=== PATIENT | female | born 1960 | race Caucasian/White ===

== ENCOUNTER 2019-07-01 11:47 | Emergency (ER) | payer MEDICARE, SELFPAY ==
[2019-07-01 11:52] VITALS: BP 195/89; PULSE 83; RESP 21; TEMP 36.6; O2SAT 97; BMI 41.5
--- NOTE | 2019-07-01 11:56 | ED_ITS ---
Entered by Chanel Ruffin, acting as scribe for Caden Nowak MD, [facility] [place]PI - Chest Pain General: Chief Complaint: Chest Pain Stated Complaint: Chest Pain Time Seen by Provider: 07/01/19 11:56 Source: patient and family Mode of arrival: ambulatory Limitations: no limitations History of Present Illness: HPI narrative: 59 yo female presents to ED with complaints of chest pain. The patient feels it is indigestion with chest pain. She has taken a total of 3 Nitro and has had relief. She said at first the pain was in her central chest and now, with deep inspiration, she has pain that goes up into her L shoulder. The patient has a heart history (she has stents in place) and the pain in her L shoulder is the same as her previous heart attack. The pain is not reproducible. She said that when she eats a lot of carbs she will, sometimes, have acid reflux due to a previous surgery. She has recently been on antibiotics for an ear infection. The patient takes a baby aspirin every day. MD complaint: chest pain Pertinent past history: prior PR Onset (ago): hour(s) (in the night) Timing of current episode: episodic Prior episodes: Yes Onset: during rest Pain location: substernal and left chest Pain radiation: none Severity: moderate Quality: aching and sharp Relieving factors: nitroglycerin Exacerbating factors: nothing Context: recent illness Associated symptoms: Reports no associated symptoms; Deny abdominal pain, dyspnea, fever(s), nausea, palpitations or vomiting Treatment prior to arrival: nitroglycerin Review of Systems General: Reports: 10 or more systems reviewed and unremarkable except in HPI and below Const: Denies: fever, chills or body aches Eyes: Reports: blind spots; Denies: change in vision or blurry vision ENMT: Denies: throat pain, enlarged tonsils, painful swallowing, hoarseness, mouth pain or swelling of lips/tongue Card: Denies: palpitations, irregular heart rhythm, edema or swelling of feet/ankles Resp: Denies: shortness of breath, productive cough or non-productive cough GI: Denies: abdominal pain, nausea or vomiting : Denies: flank pain, difficulty urinating, painful urination, urinary frequency, urinary urgency or urinary hesitancy Musc: Reports: extremity pain (left shoulder), joint pain (left shoulder) and limited range of motion; Denies: neck pain, back pain or extremity swelling Skin/Breast: Denies: rash, itching or redness Neuro: Denies: headache, numbness in extremities or weakness in extremities Endo: Denies: excessive urination, excessive thirst or tired all the time PFSH ED PFSH: Statuses (acute, chronic, etc) shown below reflect problem list status as previously entered and may not be historically accurate Social History Smoking and tobacco status: former smoker Physical Exam Const: COMMON NORMALS: no apparent distress, average body habitus, oriented x3, no limitations, healthy appearing, alert and well nourished HENMT: COMMON NORMALS: normocephalic, head/scalp atraumatic and moist oral mucous membranes HEAD & SCALP: normocephalic and atraumatic Eye: COMMON NORMALS: PERRL, EOMs intact bilaterally, conjunctivae normal and no scleral icterus CONJUNCTIVA: Yes conjunctivae normal PUPIL: Yes PERRL Neck/C-Spine: COMMON NORMALS: full ROM, supple, no meningeal signs, no JVD and no carotid bruits Chest: COMMONS NORMALS: inspection of chest normal and palpation of chest normal Resp: COMMON NORMALS: normal respiratory effort, no retractions, no use of accessory muscles, clear to auscultation bilaterally and percussion normal AUSCULTATION: clear to auscultation bilaterally PERCUSSION: percussion normal Cardio: COMMON NORMALS: no JVD, regular rate, regular rhythm, S1 normal heart sound, S2 normal heart sound, no gallops, no clicks, no murmurs, no rub and peripheral pulses 2+ throughout RATE: regular rate RHYTHM: regular rhythm HEART SOUNDS: S1 normal and S2 normal PERIPHERAL PULSES: pulses 2+ throughout GI: COMMON NORMALS: normal to inspection, nondistended, normoactive bowel sounds, soft to palpation, non-tender, no hepatosplenomegaly, no masses and no bruits PALPATION: Yes soft and Yes no hepatosplenomegaly : COMMON NORMALS: Yes no CVA tenderness BLADDER/KIDNEY EXAM: Yes no CVA tenderness Back/Pelvis: COMMON NORMALS: no CVA tenderness Extremity: COMMON NORMALS: normal to inspection, full ROM, normal capillary refill, no calf tenderness and no pedal edema Neuro: COMMON NORMALS: oriented x3 SENSORIUM/ORIENTATION: Yes alert MENINGEAL SIGNS: Yes no meningeal signs Skin: COMMON NORMALS: no rashes or lesions noted, no wounds, skin turgor normal, no jaundice, no petechiae and no mottling GENERAL SKIN EXAM: no rashes or lesions noted and turgor normal Course Vital Signs: Vital signs: Vital Signs Temperature 97.8 F 07/01/19 11:52 Pulse Rate 74 07/01/19 15:16 Respiratory Rate 20 H 07/01/19 15:16 Blood Pressure 156/79 07/01/19 15:16 Pulse Oximetry 97 07/01/19 15:16 MDM - Chest Pain MDM Narrative: Medical decision making narrative: 59 year old female who presents to the ED with complaints of chest and epigastric pain. She frequently has epigastric pain following duodenal surgery many years ago. She was unable to determine if this was from that however because her pain improved following nitro she was asked to come to the emergency department for evaluation. In the ED exam was unremarkable and her lab work was as well within the usual range. She had a negative troponin x2. She is therefore discharged home to follow-up with her primary care provider. Medical Records: Attestation: I reviewed the patient's medical records. Lab Data: Attestation: I reviewed the patient's lab results. Labs: Lab Results 07/01/19 07/01/19 07/01/19 Range/Units 12:04 12:04 12:04 WBC 8.9 (4.0-10.0) 10^3/ uL RBC 4.13 (4.1-5.3) 10^6/u L Hgb 12.3 (11.5-15.3) g/dL Hct 37.3 (37.0-47.0) % MCV 90.3 (81-99) fL MCH 29.8 (28.0-34.0) pg MCHC 33.0 (30.0-36.0) g/dL RDW 13.3 (12.1-15.1) % Plt Count 303 (130-400) 10^3/c mm MPV 9.4 (7.4-10.4) fL Neut % (Auto) 64.8 % Lymph % (Auto) 23.7 % [place] % (Auto) 5.8 % Eos % (Auto) 4.5 % Baso % (Auto) 0.8 % Neut # (Auto) 5.8 (1.8-7.7) 10^3/u L Lymph # (Auto) 2.1 (0.8-4.8) 10^3/u L [place] # (Auto) 0.5 (0.2-0.9) 10^3/u L Eos # (Auto) 0.4 (0.0-0.8) 10^3/u L Baso # (Auto) 0.1 (0.0-0.1) 10^3/u L Nucleated RBC % (a uto) 0 % Nucleated RBCs # 0.0 /100WBC Sodium 141 (136-145) mmol/L Potassium 3.5 (3.5-5.1) mmol/L Chloride 104 (98-107) mmol/L Carbon Dioxide 26 (22-29) mmol/L Anion Gap 14.5 (5-19) BUN 13 (8-23) mg/dL Creatinine 0.6 (0.5-0.9) mg/dL GFR Calculation 102.0 (90-130) mL/min Glucose 216 H (74-106) mg/dL Calcium 9.3 (8.5-10.5) mg/dL Total Bilirubin 0.2 (0.15-1.2) mg/dL AST 14 (0-32) U/L ALT 14 (0-33) U/L Alkaline Phosphata se 125 H (35-105) IU/L Troponin T Baselin e 10 (0-10) ng/mL Troponin T 120 [place] (0-10) ng/mL Delta Troponin T (0-10) ABS# Total Protein 7.1 (6.6-8.7) g/dL Albumin 3.9 (3.5-5.2) g/dL Globulin 3.2 (1.3-4.6) g/dL 07/01/19 Range/Units 14:20 WBC (4.0-10.0) 10^3/ uL RBC (4.1-5.3) 10^6/u L Hgb (11.5-15.3) g/dL Hct (37.0-47.0) % MCV (81-99) fL MCH (28.0-34.0) pg MCHC (30.0-36.0) g/dL RDW (12.1-15.1) % Plt Count (130-400) 10^3/c mm MPV (7.4-10.4) fL Neut % (Auto) % Lymph % (Auto) % [place] % (Auto) % Eos % (Auto) % Baso % (Auto) % Neut # (Auto) (1.8-7.7) 10^3/u L Lymph # (Auto) (0.8-4.8) 10^3/u L [place] # (Auto) (0.2-0.9) 10^3/u L Eos # (Auto) (0.0-0.8) 10^3/u L Baso # (Auto) (0.0-0.1) 10^3/u L Nucleated RBC % (a uto) % Nucleated RBCs # /100WBC Sodium (136-145) mmol/L Potassium (3.5-5.1) mmol/L Chloride (98-107) mmol/L Carbon Dioxide (22-29) mmol/L Anion Gap (5-19) BUN (8-23) mg/dL Creatinine (0.5-0.9) mg/dL GFR Calculation (90-130) mL/min Glucose (74-106) mg/dL Calcium (8.5-10.5) mg/dL Total Bilirubin (0.15-1.2) mg/dL AST (0-32) U/L ALT (0-33) U/L Alkaline Phosphata se (35-105) IU/L Troponin T Baselin e (0-10) ng/mL Troponin T 120 [place] 9.62 (0-10) ng/mL Delta Troponin T -0.38 L (0-10) ABS# Total Protein (6.6-8.7) g/dL Albumin (3.5-5.2) g/dL Globulin (1.3-4.6) g/dL Imaging Data^: CXR: Radiologist's impression: [address] [address] XRay Report Signed Patient: Priscilla Davis #: [id number] : 9Acct#:[id number] Age/Sex: 59 / FADM Date: 07/01/19 Loc: ERRoom/Bed: Attending Dr: Ordering Provider/Ordering MD: Caden Nowak MD, [facility] [place] Date of Service: 07/01/19 Procedure(s): XR chest 1V portable [id number] Accession Number(s): [id number] Report Number: [id number] PROCEDURE INFORMATION: Exam: XR Chest, 1 View Exam date and time: 07/01/2019 12:13 PM Age: 59 years old Clinical indication: Chest pain; Type not specified TECHNIQUE: Imaging protocol: XR of the chest Views: 1 view. COMPARISON: No relevant prior studies available. FINDINGS: Lungs: No focal consolidation. Pleural space: There is no significant pleural effusion. There is no discernible pneumothorax. Heart/Mediastinum: No cardiomegaly. Bones/joints: Unremarkable for technique. XR/XR chest 1V portable [id number] IMPRESSION: 1. No acute findings. Dictated By:Steven Hall MD Signed By:Steven Hall MDSigned Date/Time:07/01/19 1322 DD/ EKG Data^: EKG 1: Attestation: I personally reviewed and interpreted this EKG as follows: EKG interpretation date: 07/01/19 EKG interpretation time: 12:02 Prior EKG tracings: not available for review Interpretation: Normal sinus rhythm. Heart rate 81 bpm. Normal MA interval. No ST changes. Low voltage QRS complexes. EKG 2: Attestation: I personally reviewed and interpreted this EKG as follows: EKG interpretation date: 07/01/19 EKG interpretation time: 14:27 Prior EKG tracings: available for review Interpretation: unchanged from earlier today. Discharge Plan Discharge Patient Disposition: Home, Self-Care Clinical Impression: Dyspepsia Chest pain Qualifiers: Chest pain type: other chest pain Qualified Code(s): R07.89 - Other chest pain Condition: Stable Prescriptions: Continued venlafaxine 75 mg Capsule,Extended Release 24hr 75 mg PO DAILY RF: 0 carvedilol 12.5 mg Tablet 12.5 mg PO BID RF: 0 ibuprofen 800 mg Tablet 800 mg PO TID PRN (Reason: Pain) RF: 0 pioglitazone 45 mg Tablet 45 mg PO DAILY RF: 0 Aspir-Low 81 mg Tablet,Delayed Release (Dr/Ec) 81 mg PO DAILY RF: 0 isosorbide mononitrate 60 mg Tablet Extended Release 24 Hr 60 mg PO BID RF: 0 iron 325 mg (65 mg iron) Tablet 325 mg PO DAILY RF: 0 cefdinir 300 mg Capsule 300 mg PO BID RF: 0 Levemir FlexTouch U-100 Insuln 100 unit/mL (3 mL) Insulin Pen See Rx Instructions .ROUTE .COMPLEX RF: 0 Bydureon BCise 2 mg/0.85 mL auto-injector See Rx Instructions .ROUTE .COMPLEX RF: 0 Discharge Orders: Discharge Order (Routine); Ordered 07/01/19 Ordered By: Caden Nowak Referrals: Kareem Frye [Referring] - 1-3 days Patient Instructions: Chest Pain (ED), Chronic Indigestion (ED) Activity Restrictions/Additional Instructions: Return for any new or worsening symptoms. Follow-up with your primary care provider within 1 week. Discharge Date/Time: 07/01/19 15:07 Coding Level of Care Code ED Cytotechnologist for Chg Fwd Exam Problem Focused The documentation recorded by the Augustin contreras Valerie R, accurately reflects the service I personally performed and the decisions made by Eliu otto Adegoke I, MD, [facility] [place]
[2019-07-01 12:06] VITALS: BP 156/66; PULSE 84; RESP 16; O2SAT 96
--- NOTE | 2019-07-01 12:09 | XRR_ITS ---
PROCEDURE INFORMATION: Exam: XR Chest, 1 View Exam date and time: 07/01/2019 12:13 PM Age: 59 years old Clinical indication: Chest pain; Type not specified TECHNIQUE: Imaging protocol: XR of the chest Views: 1 view. COMPARISON: No relevant prior studies available. FINDINGS: Lungs: No focal consolidation. Pleural space: There is no significant pleural effusion. There is no discernible pneumothorax. Heart/Mediastinum: No cardiomegaly. Bones/joints: Unremarkable for technique. XR/XR chest 1V portable [id number] IMPRESSION: 1. No acute findings.
--- NOTE | 2019-07-01 12:09 | ECG_ITS ---
Measurements Intervals [place] Rate: 81 P: 35 GA: 164 QRS: -12 QRSD: 90 T: 15 QT: 375 QTc: 437 SINUS RHYTHM LOW QRS VOLTAGE IN PRECORDIAL LEADS [QRS DEFLECTION < 1.0 mV IN CHEST LEADS] MINIMAL ST DEPRESSION [0.025+ mV ST DEPRESSION] No previous ECG available for comparison Electronically Signed On 07-01-2019 20:26:20 PRIVATE CLIENT ADVISOR by Fermín Aragon M.D. [email or web address]
[2019-07-01 12:33] VITALS: BP 183/82; PULSE 77; RESP 18; O2SAT 96
[2019-07-01 12:45] LABS: Basophils # 0.1 10^3/uL (0.0-0.1); Basophils % 0.8 %; Eosinophils # 0.4 10^3/uL (0.0-0.8); Eosinophils % 4.5 %; Hematocrit 37.3 % (37.0-47.0); Hemoglobin 12.3 g/dL (11.5-15.3); Lymphocytes # 2.1 10^3/uL (0.8-4.8); Lymphocytes % 23.7 %; Mean Corpuscular Hemoglobin 29.8 pg (28.0-34.0); Mean Corpuscular Volume 90.3 fL (81-99); Mean Platelet Volume 9.4 fL (7.4-10.4); Monocytes # 0.5 10^3/uL (0.2-0.9); Monocytes % 5.8 %; Neutrophils # 5.8 10^3/uL (1.8-7.7); Neutrophils % 64.8 %; Nucleated Red Blood Cells % 0 %; Platelet Count 303 10^3/cmm (130-400); Red Blood Count 4.13 10^6/uL (4.1-5.3); Red Cell Distribution Width 13.3 % (12.1-15.1); White Blood Count 8.9 10^3/uL (4.0-10.0)
[2019-07-01] MEDS: aspirin 81 mg Chew Tablet 243 MG PO (12:45)
[2019-07-01 12:54] LABS: Alanine Aminotransferase 14 U/L (0-33); Albumin Level 3.9 g/dL (3.5-5.2); Alkaline Phosphatase 125 IU/L (35-105); Anion Gap 14.5 (5-19); Aspartate Amino Transferase 14 U/L (0-32); Blood Urea Nitrogen 13 mg/dL (8-23); Calcium 9.3 mg/dL (8.5-10.5); Carbon Dioxide 26 mmol/L (22-29); Chloride 104 mmol/L (98-107); Globulin 3.2 g/dL (1.3-4.6); Glucose 216 mg/dL (74-106); Potassium 3.5 mmol/L (3.5-5.1); Sodium 141 mmol/L (136-145); Total Bilirubin 0.2 mg/dL (0.15-1.2); Total Protein 7.1 g/dL (6.6-8.7)
[2019-07-01 12:56] LABS: Troponin(5th) Baseline 10 ng/mL (0-10)
[2019-07-01 13:44] VITALS: BP 184/76; PULSE 72; RESP 17; O2SAT 98
--- NOTE | 2019-07-01 14:09 | ECG_ITS ---
Measurements Intervals [place] Rate: 70 P: 27 IN: 162 QRS: -5 QRSD: 97 T: 14 QT: 399 QTc: 431 SINUS RHYTHM INTERPRETATION BASED ON A DEFAULT AGE OF 40 YEARS No previous ECG available for comparison Electronically Signed On 07-02-2019 21:04:24 TANK TRUCK DRIVER by Fermín Aragon M.D. [id number]
--- NOTE | 2019-07-01 14:33 | PC.NURSE ---
EKG performed and shown to ED physician.
[2019-07-01 14:43] LABS: Troponin 5 2HR 9.62 ng/mL (0-10)
[2019-07-01 14:52] LABS: Troponin 5 2HR Delta -0.38 ABS# (0-10)
[2019-07-01 15:16] VITALS: BP 156/79; PULSE 74; RESP 20; O2SAT 97
== END 2019-07-01 15:07 | disposition home or self-care (01) ==
PROVIDERS: Emergency Provider Family Medicine
DX: R07.89 Other chest pain (principal); R10.13 Epigastric pain; Z79.82 Long term (current) use of aspirin; Z79.4 Long term (current) use of insulin; Z87.891 Personal history of nicotine dependence
CPT/HCPCS: 36415; 71045; 80053; 84484; 85025; 93005; 99283; 99284

== ENCOUNTER → 2021-03-12 13:58 | Outpatient (BNVA) | payer MEDICARE, SELFPAY | PROVIDERS: PCP Physician Assistant Medical; Referring Provider Physician Assistant; Visit Provider Internal Medicine | DX: E11.9 Type 2 diabetes mellitus without complications (principal); I51.7 Cardiomegaly; J90 Pleural effusion, not elsewhere classified; Z87.891 Personal history of nicotine dependence; Z79.4 Long term (current) use of insulin | CPT/HCPCS: 99204 ==

== ENCOUNTER 2021-12-28 14:19 | Emergency (ER) | payer MEDICARE, SELFPAY ==
[2021-12-28] VITALS (9 sets, daily range): BP systolic 85–122; BP diastolic 41–68; PULSE 90–106; RESP 0–30; TEMP 36.4; O2SAT 84–96; BMI 44.9
--- NOTE | 2021-12-28 14:24 | CTR_ITS ---
PROCEDURE INFORMATION: Exam: CT Abdomen And Pelvis Without Contrast Exam date and time: 12/28/2021 5:32 PM Age: 61 years old Clinical indication: Abdominal pain; Prior surgery; Surgery date: 6+ months; Surgery type: Drainage in place S/P gastro surgery TECHNIQUE: Imaging protocol: Computed tomography of the abdomen and pelvis without contrast. Radiation optimization: All CT scans at this facility use at least one of these dose optimization techniques: automated exposure control; mA and/or kV adjustment per patient size (includes targeted exams where dose is matched to clinical indication); or iterative reconstruction. COMPARISON: CT chest wo/w con [id number] 09/02/2020 1:47 PM RADIATION DOSE METRICS: Total DLP (mGy-cm): 978.9 FINDINGS: Tubes, catheters and devices: Left upper abdominal percutaneous drainage catheter seen in a poorly defined collection of fluid and air measuring at least 4.9 cm AP by 5.2 cm transverse in the subdiaphragmatic region, separation from the stomach of this collection is limited given lack of enteric contrast. Additionally an apparent gastric band is seen in the left upper quadrant, similar to prior exam. Lungs: Atelectasis versus infiltrate. Pleural spaces: Moderate bilateral left greater than right pleural effusions. Heart: Coronary artery atherosclerotic calcifications. Liver: Hepatic steatosis. Gallbladder and bile ducts: Cholecystectomy. Pancreas: Normal. No ductal dilation. Spleen: Normal. No splenomegaly. Adrenal glands: Normal. No mass. Kidneys and ureters: Left kidney cyst, negative for follow-up advised. Stomach and bowel: See Tubes, catheters and devices finding. Appendix: No evidence of appendicitis. Intraperitoneal space: Unremarkable. No free air. No significant fluid collection. Vasculature: Inferior vena cava filter. Lymph nodes: Unremarkable. No enlarged lymph nodes. Urinary bladder: Rojo catheter in the urinary bladder with air presumed iatrogenic. Reproductive: Unremarkable as visualized. Bones/joints: Unremarkable. No acute fracture. Soft tissues: Diffuse subcutaneous edema about the abdomen pelvis. Probable multifocal injection granulomas seen over the abdomen given multiple rounded soft tissue densities measuring up to at least [address]/CT abdomen pelvis wo con [id number] IMPRESSION: 1. Left upper abdominal percutaneous drainage catheter seen in a poorly defined collection of fluid and air measuring at least 4.9 cm AP by 5.2 cm transverse in the subdiaphragmatic region, separation from the stomach of this collection is limited given lack of enteric contrast. Additionally an apparent gastric band is seen in the left upper quadrant, similar to prior exam. 2. Inferior vena cava filter. 3. Diffuse subcutaneous edema about the abdomen pelvis. 4. Probable multifocal injection granulomas seen over the abdomen given multiple rounded soft tissue densities measuring up to at least 13 mm. 5. Rojo catheter in the urinary bladder with air presumed iatrogenic. 6. Left kidney cyst, negative for follow-up advised. 7. Moderate bilateral left greater than right pleural effusions. 8. Coronary artery atherosclerotic calcifications. 9. Atelectasis versus infiltrate. 10. Hepatic steatosis. 11. Cholecystectomy. COMMENTS: For patients with an IVC filter, recommend assessment for a management plan for the patient's IVC filter. If there is no established management plan, recommend referral to an interventional clinician on a nonemergent basis for evaluation.
--- NOTE | 2021-12-28 14:24 | CTR_ITS ---
PROCEDURE INFORMATION: Exam: CT Head Without Contrast Exam date and time: 12/28/2021 5:29 PM Age: 61 years old Clinical indication: Altered mental status/memory loss; Additional info: AMS, HX of 2 cva's. TECHNIQUE: Imaging protocol: Computed tomography of the head without contrast. Radiation optimization: All CT scans at this facility use at least one of these dose optimization techniques: automated exposure control; mA and/or kV adjustment per patient size (includes targeted exams where dose is matched to clinical indication); or iterative reconstruction. COMPARISON: No relevant prior studies available. RADIATION DOSE METRICS: Total DLP (mGy-cm): 1127.78 FINDINGS: Brain: There are chronic cortical infarcts in the left occipital lobe, and in the left frontal and parietal lobes. There is moderate cortical atrophy. Low-density changes in the white matter are consistent with nonspecific small vessel chronic ischemic change. There is no intracranial mass, hemorrhage or edema. Cerebral ventricles: No ventriculomegaly. Paranasal sinuses: Visualized sinuses are unremarkable. No fluid levels. Mastoid air cells: Visualized mastoid air cells are well aerated. Bones/joints: Unremarkable. No acute fracture. Soft tissues: Unremarkable. CT/CT head wo con* [id number] IMPRESSION: 1. 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 2. No acute intracranial abnormality.
--- NOTE | 2021-12-28 14:24 | ECG_ITS ---
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 Measurements Intervals [place] Rate: 102 P: 52 MA: 154 QRS: -4 QRSD: 99 T: 79 QT: 340 QTc: 444 Interpretive Statements SINUS TACHYCARDIA LOW QRS VOLTAGE IN EXTREMITY LEADS [QRS DEFLECTION < 0.5 mV IN LIMB LEADS] POSSIBLE ANTERIOR MYOCARDIAL INFARCTION , OF INDETERMINATE AGE [30 ms Q WAVE IN V3/V4, OR R < 0.2 mV IN V4] Compared to ECG 07/01/2019 14:26:47 Low QRS voltage now present Myocardial infarct finding now present Sinus rhythm no longer present Electronically Signed On 12-29-2021 7:08:59 CDT by Leonel Ramos M.D. [id number]
[2021-12-28] MEDS: ondansetron 2 mg/ML SDV 2 mL 4 MG IVP (14:39)
[2021-12-28] MEDS: midazolam 1 mg/mL INJ 2 mL IVP ×3 (14:40→16:35)
--- NOTE | 2021-12-28 14:50 | ED_ITS ---
Documented by User: Gabe Moore DO 01/04/22 22:35 HPI - General Adult General: Chief complaint: Altered Mental Status Stated complaint: AMS Time Seen by Provider: 12/28/21 14:23 Source: EMS Mode of arrival: EMS Limitations: altered mental status History of Present Illness: 61-year-old female presents emergency room via EMS from [facility]. Patient has significant altered mental status is unable to provide any history is brought in from home she has a PEG tube in place she has what looks like an remnants of a diaper under the left breast and has was found to have melanic bleeding from the rectum. When patient first arrived the only history we are getting is via EMS report. There is no family in the department. Patient was calling out and thrashing about the bed to the point where she had to be given sedatives to allow care to be given. Onset (ago): unknown Location: abdomen Severity: moderate Relieving factors: none Exacerbating factors: none Associated symptoms: Reports confusion, decreased appetite, malaise, rash and weakness; Deny chest pain, cough, diaphoresis, dyspnea, fevers/chills, headache(s), nausea, palpitations, seizures, short of breath, syncope or vomiting Treatments prior to arrival: none Review of Systems General: Reports: ROS unobtainable due to mental status (Limited due to mental status) Const: Reports: malaise; Denies: diaphoresis Card: Denies: chest pain, palpitations or syncope Resp: Denies: dyspnea GI: Denies: nausea or vomiting Skin/Breast: Reports: rash Neuro: Reports: confusion; Denies: headache(s) PFS ED PFSH: Medical History Anxiety CAD (coronary artery disease) Iron deficiency Type 2 diabetes mellitus Surgical History H/O dilation and curettage H/O hernia repair H/O laparoscopic adjustable gastric banding History of cholecystectomy Hx of tonsillectomy S/P biliopancreatic diversion with duodenal switch S/P panniculectomy Stented coronary artery Family History Mother Cancer Stroke Father Cancer CAD (coronary artery disease) Brother Cancer Sister Cancer Social History Smoking and tobacco status: former smoker Quit status (tobacco): has quit using tobacco Year quit tobacco: 1991 Former quit date comment: Hx of 3PPD x 20 Years Smoking risk assessment/counseling performed?: No Alcohol intake: never Counseling given: No Counseling given: No Lives independently: Yes Household members: spouse Marital status: Current occupational status: disabled 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 Pets and animals: Yes Pets & animals: cat(s) and bird(s) Pets & animal details: Previous bird exposure Current gender identity: Female Physical Exam Const: GENERAL APPEARANCE: disheveled and ill appearing NUTRITIONAL APPEARANCE: obese ORIENTATION/CONSCIOUSNESS: Yes awake and Yes confused HENMT: COMMON NORMALS: normocephalic, atraumatic and hearing grossly normal bilaterally HEAD & SCALP: normocephalic and atraumatic Resp: COMMON NORMALS: normal respiratory effort, No retractions, No use of accessory muscles and clear to auscultation bilaterally AUSCULTATION: clear to auscultation bilaterally Cardio: COMMON NORMALS: regular rate, regular rhythm and No murmurs present (Cardio) RATE: regular rate RHYTHM: regular rhythm GI: COMMON NORMALS: Soft to palpation and No hepatosplenomegaly present AUSCULTATION: Yes normoactive bowel sounds PALPATION: Yes Soft to palpation, No Tenderness to palpation present (GI), No Guarding due to palpation present (GI) and Yes No hepatosplenomegaly present OTHER: Significant scar tissue on the abdomen. Examination of the presacral area in the rectum there is dark red blood about the rectum. Patient has a depends undergarment on which is also soaked with blood. Extremity: COMMON NORMALS: normal to inspection, capillary refill normal, no clubbing, cyanosis or edema, no calf tenderness and no pedal edema Neuro: SENSORIUM/ORIENTATION: Yes stuporous Course Vital Signs: Vital signs: Vital Signs Temperature 97.5 F L 12/28/21 21:19 Pulse Rate 97 12/28/21 21:19 Respiratory Rate 15 12/28/21 21:19 Blood Pressure 101/56 12/28/21 21:19 Pulse Oximetry 96 12/28/21 21:19 MDM - General Adult Medical Decision Making Initially patient seen evaluated made arrangements to admit. Family became a vailable later and wished to transfer patient where she previous had bariatric surgery see Dr. Beasley's notes Patient presents here with altered mental status found to be septic with elevated white count and lactate her blood pressure is much improved after IV fluids patient was given IV antibiotics as well she had extensive history had a gastric sleeve CT did show a large fluid collection around her percutaneous drain we do not have bariatric surgery here I did speak to her bariatric surgeon in [place] and will transfer there for higher level of care. Medical Records I reviewed the patient's medical records. Lab Data I reviewed the patient's lab results. : 12/28/21 16:07 12/28/21 16:07 Radiology Impressions Abdomen/Pelvis CT 12/28/21 14:24 IMPRESSION: 1. Left upper abdominal percutaneous drainage catheter seen in a poorly defined collection of fluid and air measuring at least 4.9 cm AP by 5.2 cm transverse in the subdiaphragmatic region, separation from the stomach of this collection is limited given lack of enteric contrast. Additionally an apparent gastric band is seen in the left upper quadrant, similar to prior exam. 2. Inferior vena cava filter. 3. Diffuse subcutaneous edema about the abdomen pelvis. 4. Probable multifocal injection granulomas seen over the abdomen given multiple rounded soft tissue densities measuring up to at least 13 mm. 5. Rojo catheter in the urinary bladder with air presumed iatrogenic. 6. Left kidney cyst, negative for follow-up advised. 7. Moderate bilateral left greater than right pleural effusions. 8. Coronary artery atherosclerotic calcifications. 9. Atelectasis versus infiltrate. 10. Hepatic steatosis. 11. Cholecystectomy. COMMENTS: For patients with an IVC filter, recommend assessment for a management plan for the patient's IVC filter. If there is no established management plan, recommend referral to an interventional clinician on a nonemergent basis for evaluation. Head CT 12/28/21 14:24 IMPRESSION: 1. 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 2. No acute intracranial abnormality. Chest X-Ray 12/28/21 17:26 IMPRESSION: 1. Mild cardiomegaly. 2. Small left effusion suspected. 3. Bibasilar left greater than right atelectasis versus infiltrate. 4. Left upper abdominal drainage catheter\ seen. Laboratory Results WBC 18.5 10^3/uL (4.0-10.0) H 12/28/21 16:07 RBC 2.61 10^6/uL (4.1-5.3) L 12/28/21 16:07 Hgb 9.0 g/dL (11.5-15.3) L 12/28/21 16:07 Hct 28.4 % (37.0-47.0) L 12/28/21 16:07 MCV 108.8 fl (81-99) H 12/28/21 16:07 MCH 34.5 pg (28.0-34.0) H 12/28/21 16:07 MCHC 31.7 g/dL (30.0-36.0) 12/28/21 16:07 RDW 16.4 % (12.1-15.1) H 12/28/21 16:07 Plt Count 483 10^3/cmm (130-400) H 12/28/21 16:07 MPV 8.5 fL (7.4-10.4) 12/28/21 16:07 Neut % (Auto) 87.0 % 12/28/21 16:07 Lymph % (Auto) 5.3 % 12/28/21 16:07 Johnston % (Auto) 6.0 % 12/28/21 16:07 Eos % (Auto) 0.0 % 12/28/21 16:07 Baso % (Auto) 0.3 % 12/28/21 16:07 Neut # (Auto) 16.08 10^3/uL (1.8-7.7) H 12/28/21 16:07 Lymph # (Auto) 1.0 10^3/uL (0.8-4.8) 12/28/21 16:07 Johnston # (Auto) 1.1 10^3/uL (0.2-0.9) H 12/28/21 16:07 Eos # (Auto) 0.0 10^3/uL (0.0-0.8) 12/28/21 16:07 Baso # (Auto) 0.1 10^3/uL (0.0-0.1) 12/28/21 16:07 Nucleated RBC % (auto) 0.1 % 12/28/21 16:07 Nucleated RBCs # 0.0 /100WBC 12/28/21 16:07 Sodium 132 mmol/L (136-145) L 12/28/21 16:07 Potassium 4.5 mmol/L (3.5-5.1) 12/28/21 16:07 Chloride 97 mmol/L (98-107) L 12/28/21 16:07 Carbon Dioxide 21 mmol/L (22-29) L 12/28/21 16:07 Anion Gap 18.5 (5-19) 12/28/21 16:07 BUN 24 mg/dL (8-23) H 12/28/21 16:07 Creatinine 0.9 mg/dL (0.5-0.9) 12/28/21 16:07 GFR Calculation 63.4 mL/min (90-130) L 12/28/21 16:07 Glucose 109 mg/dL (65-115) 12/28/21 16:07 Calculated Osmolality 279 mOsm/kg (285-295) L 12/28/21 16:07 Lactic Acid 5.4 mmol/L (0.5-2.2) H* 12/28/21 16:07 Lactate 2.6 mmol/L (0.5-2.2) H 12/28/21 19:50 Calcium 7.6 mg/dL (8.5-10.5) L 12/28/21 16:07 Magnesium 1.8 mg/dL (1.7-2.3) 12/28/21 16:07 Total Bilirubin 1.3 mg/dL (0.15-1.2) H 12/28/21 16:07 AST 25 U/L (0-32) 12/28/21 16:07 ALT 26 U/L (0-33) 12/28/21 16:07 Alkaline Phosphatase 234 IU/L (35-105) H 12/28/21 16:07 Troponin T Baseline 20 ng/L (0-10) H 12/28/21 16:07 Troponin T 120 Minute 15.26 ng/L (0-10) H 12/28/21 20:12 Delta Troponin T -4.74 ABS# (0-10) L 12/28/21 20:12 Total Protein 4.9 g/dL (6.6-8.7) L 12/28/21 16:07 Albumin 1.6 g/dL (3.5-5.2) L 12/28/21 16:07 Globulin 3.3 g/dL (1.3-4.6) 12/28/21 16:07 Lipase 4 U/L (13-60) L 12/28/21 16:07 Urine Color Nayeli (Yellow) 12/28/21 14:50 Urine Appearance Hazy (CLEAR) A 12/28/21 14:50 Urine pH 5 (5-7) 12/28/21 14:50 Ur Specific Olyphant 1.015 (1.005-1.030) 12/28/21 14:50 Urine Protein Neg (Negative) 12/28/21 14:50 Urine Glucose (UA) Norm (Normal) 12/28/21 14:50 Urine Ketones Negative (Negative) 12/28/21 14:50 Urine Blood 3+ (Negative) H 12/28/21 14:50 Urine Nitrate Negative (Negative) 12/28/21 14:50 Urine Bilirubin 2+ (Negative) H 12/28/21 14:50 Urine Urobilinogen 4 mg/dL (Negative) H 12/28/21 14:50 Ur Leukocyte Esterase Negative (Negative) 12/28/21 14:50 Urine RBC 5-10 /hpf (0-2) H 12/28/21 14:50 Urine WBC 0-4 /hpf (0-5) H 12/28/21 14:50 Ur Squamous Epith Cells 10-15 /hpf (0-5) H 12/28/21 14:50 Amorphous Sediment Not Reportable 12/28/21 14:50 Urine Bacteria 1+ /hpf (NONE) H 12/28/21 14:50 Hyaline Casts 15-25 /lpf H 12/28/21 14:50 Urine Mucus 1+ /hpf 12/28/21 14:50 Serum Ketones Negative (Negative) 12/28/21 16:07 SARS-CoV-2 Ag (Rapid) Negative (Negative) 12/28/21 19:59 Blood Type O Positive 12/28/21 17:00 Rho(D) Type Positive 12/28/21 17:00 Antibody Screen Negative 12/28/21 17:00 Discharge Plan Discharge Patient Disposition: Xfer Short-Term Hosp Clinical Impression: Sepsis, Altered mental status Condition: Stable Referrals: Kareem Frye [Referring] - John Bolden MD [Primary Care Provider] - Coding Level of Care Code ED Safety Professional for Chg Fwd Exam Detailed Documented by User: Eliel Beasley MD 12/28/21 20:29 HPI - General Adult General: Chief complaint: Altered Mental Status Stated complaint: AMS Time Seen by Provider: 12/28/21 14:23 PFSH ED PFSH: Medical History Anxiety CAD (coronary artery disease) Iron deficiency Type 2 diabetes mellitus Surgical History H/O dilation and curettage H/O hernia repair H/O laparoscopic adjustable gastric banding History of cholecystectomy Hx of tonsillectomy S/P biliopancreatic diversion with duodenal switch S/P panniculectomy Stented coronary artery Family History Mother Cancer Stroke Father Cancer CAD (coronary artery disease) Brother Cancer Sister Cancer Social History Smoking and tobacco status: former smoker Quit status (tobacco): has quit using tobacco Year quit tobacco: 1991 Former quit date comment: Hx of 3PPD x 20 Years Smoking risk assessment/counseling performed?: No Alcohol intake: never Counseling given: No Counseling given: No Lives independently: Yes Household members: spouse Marital status: Current occupational status: disabled 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 Pets and animals: Yes Pets & animals: cat(s) and bird(s) Pets & animal details: Previous bird exposure Current gender identity: Female Course Vital Signs: Vital signs: Vital Signs Temperature 97.5 F L 12/28/21 21:19 Pulse Rate 97 12/28/21 21:19 Respiratory Rate 15 12/28/21 21:19 Blood Pressure 101/56 12/28/21 21:19 Pulse Oximetry 96 12/28/21 21:19 MDM - General Adult Medical Decision Making Patient presents here with altered mental status found to be septic with elevated white count and lactate her blood pressure is much improved after IV fluids patient was given IV antibiotics as well she had extensive history had a gastric sleeve CT did show a large fluid collection around her percutaneous drain we do not have bariatric surgery here I did speak to her bariatric surgeon in [place] and will transfer there for higher level of care. Lab Data : 12/28/21 16:07 12/28/21 16:07 Radiology Impressions Abdomen/Pelvis CT 12/28/21 14:24 IMPRESSION: 1. Left upper abdominal percutaneous drainage catheter seen in a poorly defined collection of fluid and air measuring at least 4.9 cm AP by 5.2 cm transverse in the subdiaphragmatic region, separation from the stomach of this collection is limited given lack of enteric contrast. Additionally an apparent gastric band is seen in the left upper quadrant, similar to prior exam. 2. Inferior vena cava filter. 3. Diffuse subcutaneous edema about the abdomen pelvis. 4. Probable multifocal injection granulomas seen over the abdomen given multiple rounded soft tissue densities measuring up to at least 13 mm. 5. Rojo catheter in the urinary bladder with air presumed iatrogenic. 6. Left kidney cyst, negative for follow-up advised. 7. Moderate bilateral left greater than right pleural effusions. 8. Coronary artery atherosclerotic calcifications. 9. Atelectasis versus infiltrate. 10. Hepatic steatosis. 11. Cholecystectomy. COMMENTS: For patients with an IVC filter, recommend assessment for a management plan for the patient's IVC filter. If there is no established management plan, recommend referral to an interventional clinician on a nonemergent basis for evaluation. Head CT 12/28/21 14:24 IMPRESSION: 1. 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 2. No acute intracranial abnormality. Chest X-Ray 12/28/21 17:26 IMPRESSION: 1. Mild cardiomegaly. 2. Small left effusion suspected. 3. Bibasilar left greater than right atelectasis versus infiltrate. 4. Left upper abdominal drainage catheter\ seen. Laboratory Results WBC 18.5 10^3/uL (4.0-10.0) H 12/28/21 16:07 RBC 2.61 10^6/uL (4.1-5.3) L 12/28/21 16:07 Hgb 9.0 g/dL (11.5-15.3) L 12/28/21 16:07 Hct 28.4 % (37.0-47.0) L 12/28/21 16:07 MCV 108.8 fl (81-99) H 12/28/21 16:07 MCH 34.5 pg (28.0-34.0) H 12/28/21 16:07 MCHC 31.7 g/dL (30.0-36.0) 12/28/21 16:07 RDW 16.4 % (12.1-15.1) H 12/28/21 16:07 Plt Count 483 10^3/cmm (130-400) H 12/28/21 16:07 MPV 8.5 fL (7.4-10.4) 12/28/21 16:07 Neut % (Auto) 87.0 % 12/28/21 16:07 Lymph % (Auto) 5.3 % 12/28/21 16:07 Johnston % (Auto) 6.0 % 12/28/21 16:07 Eos % (Auto) 0.0 % 12/28/21 16:07 Baso % (Auto) 0.3 % 12/28/21 16:07 Neut # (Auto) 16.08 10^3/uL (1.8-7.7) H 12/28/21 16:07 Lymph # (Auto) 1.0 10^3/uL (0.8-4.8) 12/28/21 16:07 Johnston # (Auto) 1.1 10^3/uL (0.2-0.9) H 12/28/21 16:07 Eos # (Auto) 0.0 10^3/uL (0.0-0.8) 12/28/21 16:07 Baso # (Auto) 0.1 10^3/uL (0.0-0.1) 12/28/21 16:07 Nucleated RBC % (auto) 0.1 % 12/28/21 16:07 Nucleated RBCs # 0.0 /100WBC 12/28/21 16:07 Sodium 132 mmol/L (136-145) L 12/28/21 16:07 Potassium 4.5 mmol/L (3.5-5.1) 12/28/21 16:07 Chloride 97 mmol/L (98-107) L 12/28/21 16:07 Carbon Dioxide 21 mmol/L (22-29) L 12/28/21 16:07 Anion Gap 18.5 (5-19) 12/28/21 16:07 BUN 24 mg/dL (8-23) H 12/28/21 16:07 Creatinine 0.9 mg/dL (0.5-0.9) 12/28/21 16:07 GFR Calculation 63.4 mL/min (90-130) L 12/28/21 16:07 Glucose 109 mg/dL (65-115) 12/28/21 16:07 Calculated Osmolality 279 mOsm/kg (285-295) L 12/28/21 16:07 Lactic Acid 5.4 mmol/L (0.5-2.2) H* 12/28/21 16:07 Lactate 2.6 mmol/L (0.5-2.2) H 12/28/21 19:50 Calcium 7.6 mg/dL (8.5-10.5) L 12/28/21 16:07 Magnesium 1.8 mg/dL (1.7-2.3) 12/28/21 16:07 Total Bilirubin 1.3 mg/dL (0.15-1.2) H 12/28/21 16:07 AST 25 U/L (0-32) 12/28/21 16:07 ALT 26 U/L (0-33) 12/28/21 16:07 Alkaline Phosphatase 234 IU/L (35-105) H 12/28/21 16:07 Troponin T Baseline 20 ng/L (0-10) H 12/28/21 16:07 Troponin T 120 Minute 15.26 ng/L (0-10) H 12/28/21 20:12 Delta Troponin T -4.74 ABS# (0-10) L 12/28/21 20:12 Total Protein 4.9 g/dL (6.6-8.7) L 12/28/21 16:07 Albumin 1.6 g/dL (3.5-5.2) L 12/28/21 16:07 Globulin 3.3 g/dL (1.3-4.6) 12/28/21 16:07 Lipase 4 U/L (13-60) L 12/28/21 16:07 Urine Color Nayeli (Yellow) 12/28/21 14:50 Urine Appearance Hazy (CLEAR) A 12/28/21 14:50 Urine pH 5 (5-7) 12/28/21 14:50 Ur Specific Olyphant 1.015 (1.005-1.030) 12/28/21 14:50 Urine Protein Neg (Negative) 12/28/21 14:50 Urine Glucose (UA) Norm (Normal) 12/28/21 14:50 Urine Ketones Negative (Negative) 12/28/21 14:50 Urine Blood 3+ (Negative) H 12/28/21 14:50 Urine Nitrate Negative (Negative) 12/28/21 14:50 Urine Bilirubin 2+ (Negative) H 12/28/21 14:50 Urine Urobilinogen 4 mg/dL (Negative) H 12/28/21 14:50 Ur Leukocyte Esterase Negative (Negative) 12/28/21 14:50 Urine RBC 5-10 /hpf (0-2) H 12/28/21 14:50 Urine WBC 0-4 /hpf (0-5) H 12/28/21 14:50 Ur Squamous Epith Cells 10-15 /hpf (0-5) H 12/28/21 14:50 Amorphous Sediment Not Reportable 12/28/21 14:50 Urine Bacteria 1+ /hpf (NONE) H 12/28/21 14:50 Hyaline Casts 15-25 /lpf H 12/28/21 14:50 Urine Mucus 1+ /hpf 12/28/21 14:50 Serum Ketones Negative (Negative) 12/28/21 16:07 SARS-CoV-2 Ag (Rapid) Negative (Negative) 12/28/21 19:59 Blood Type O Positive 12/28/21 17:00 Rho(D) Type Positive 12/28/21 17:00 Antibody Screen Negative 12/28/21 17:00 Critical Care Time Critical Care Time: Critical Care Time: Yes Total Critical Care Time: 40 Attestation: The high probability of a clinically significant, sudden or life threatening deterioration of the patient's gi system(s) required my full and direct attention, intervention and personal management. The critical care time is as shown. This time is in addition to time spent performing any reported procedures but includes the following: [x] Data and vital sign review and interpretation [x] Patient assessment, examination and intervention [x] Documentation [x] Medication orders and management Discharge Plan Discharge Patient Disposition: Xfer Short-Term Hosp Clinical Impression: Sepsis, Altered mental status Condition: Stable Referrals: Kareem Frye [Referring] - John Bolden MD [Primary Care Provider] - Coding Level of Care Code ED Safety Professional for Chg Fwd Exam Detailed
[2021-12-28 15:13] LABS: Urine Appearance Hazy (CLEAR); Urine Color Amber (Yellow)
[2021-12-28 15:14] LABS: Add Urine Culture? No; Add Urine Microscopic? YES; Bacteria Urine 1+ /hpf; Bilirubin Urine 2+ (Negative); Blood Urine 3+ (Negative); Glucose Urine UA Norm (Normal); Hyaline Casts Urine 15-25 /lpf; Ketones Urine Negative (Negative); Leukocyte Esterase Urine Negative (Negative); Mucus Urine 1+ /hpf; Nitrate Urine Negative (Negative); Protein Urine Neg (Negative); Specific Gravity, Urine 1.015 (1.005-1.030); Urobilinogen Urine 4 mg/dL (Negative); WBC Urine 0-4 /hpf (0-5); pH Urine 5 (5-7)
--- NOTE | 2021-12-28 15:38 | PC.PHAR ---
PTS AND DAUGHTER VERIFIED THE PTS MEDICATIONS-PTS STATES HE GAVE THE PT A LASIX 40MG YESTERDAY 12/27/21 STATES THIS WAS AN [facility] STATES LAST FILLED APR 2021-PTS STATES HE JUST RESTARTED THE PT ON KCL 20MEQ DAILY STATES HE HAD SOME FROM AN OLD RX [facility] LAST FILLED APR 2021-PTS STATE JUST GIVES THE HUMALOG KWIKPEN SS TID PRN RX LAST FILLED 08/28/21 90D/S FOR 5 UNITS TID WITH MEALS-NOTES ARE MADE IN THE PHARMACY COMMENTS
--- NOTE | 2021-12-28 16:19 | ECG_ITS ---
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 Measurements Intervals [place] Rate: 101 P: 41 HI: 161 QRS: -3 QRSD: 101 T: 66 QT: 337 QTc: 437 Interpretive Statements SINUS TACHYCARDIA LOW QRS VOLTAGE IN EXTREMITY LEADS [QRS DEFLECTION < 0.5 mV IN LIMB LEADS] ABNORMAL RHYTHM ECG Compared to ECG 12/28/2021 14:38:52 Myocardial infarct finding no longer present Electronically Signed On 12-29-2021 21:22:38 CDT by Fermín Aragon M.D. [id number]
[2021-12-28 16:24] LABS: Basophils # 0.1 10^3/uL (0.0-0.1); Basophils % 0.3 %; Hematocrit 28.4 % (37.0-47.0); Lymphocytes % 5.3 %; Mean Corpuscular HGB Conc 31.7 g/dL (30.0-36.0); Mean Corpuscular Hemoglobin 34.5 pg (28.0-34.0); Mean Corpuscular Volume 108.8 fl (81-99); Mean Platelet Volume 8.5 fL (7.4-10.4); Monocytes # 1.1 10^3/uL (0.2-0.9); Neutrophils # 16.08 10^3/uL (1.8-7.7); Nucleated Red Blood Cells % 0.1 %; Platelet Count 483 10^3/cmm (130-400); Red Blood Count 2.61 10^6/uL (4.1-5.3); Red Cell Distribution Width 16.4 % (12.1-15.1); White Blood Count 18.5 10^3/uL (4.0-10.0)
[2021-12-28] MEDS: OLANZapine 10 mg VIAL IM (16:35)
[2021-12-28 16:48] LABS: Ketone (Acetest) Serum Negative (Negative); Troponin(5th) Baseline 20 ng/L (0-10)
[2021-12-28 16:49] LABS: Lactic Sepsis W/Reflex 5.4 mmol/L (0.5-2.2)
[2021-12-28 16:50] LABS: Alanine Aminotransferase 26 U/L (0-33); Albumin Level 1.6 g/dL (3.5-5.2); Alkaline Phosphatase 234 IU/L (35-105); Anion Gap 18.5 (5-19); Aspartate Amino Transferase 25 U/L (0-32); Blood Urea Nitrogen 24 mg/dL (8-23); Calcium 7.6 mg/dL (8.5-10.5); Carbon Dioxide 21 mmol/L (22-29); Chloride 97 mmol/L (98-107); Creatinine Clr Calc Pharmacy 85.1136; Globulin 3.3 g/dL (1.3-4.6); Glomerular Filtration Rate 63.4 mL/min (90-130); Glucose 109 mg/dL (65-115); Lipase 4 U/L (13-60); Magnesium 1.8 mg/dL (1.7-2.3); Osmolality Calculated 279 mOsm/kg (285-295); Potassium 4.5 mmol/L (3.5-5.1); Sodium 132 mmol/L (136-145); Total Bilirubin 1.3 mg/dL (0.15-1.2); Total Protein 4.9 g/dL (6.6-8.7)
[2021-12-28] MEDS: piperacillin-tazobactam 3.375 GM in sodium chloride 0.9% (plus) 50 ML IV (16:55)
--- NOTE | 2021-12-28 17:26 | XRR_ITS ---
PROCEDURE INFORMATION: Exam: XR Chest Exam date and time: 12/28/2021 5:36 PM Age: 61 years old Clinical indication: Shortness of breath; Additional info: Dyspnea/cough TECHNIQUE: Imaging protocol: Radiologic exam of the chest. Views: 1 view. COMPARISON: CT chest wo/w con [id number] 09/02/2020 1:47 PM FINDINGS: Tubes, catheters and devices: Left upper abdominal drainage catheter seen. Lungs: Bibasilar left greater than right atelectasis versus infiltrate. Pleural spaces: Unremarkable. No pleural effusion. No pneumothorax. Heart/Mediastinum: Mild cardiomegaly. Bones/joints: Unremarkable. Other findings: Small left effusion suspected. XR/XR chest 1V portable [id number] IMPRESSION: 1. Mild cardiomegaly. 2. Small left effusion suspected. 3. Bibasilar left greater than right atelectasis versus infiltrate. 4. Left upper abdominal drainage catheter\ seen.
[2021-12-28 18:02] LABS: Reflex Lactate Order REFLEX LACTIC ORDERD
[2021-12-28] MEDS: vancomycin 1,000 MG in sodium chloride 0.9% 250 ML 250 MG IV (18:31)
[2021-12-28 20:20] LABS: Lactate (Lactic Acid level) 2.6 mmol/L (0.5-2.2)
[2021-12-28 20:42] LABS: SARS Covid-2 Antigen Negative (Negative)
[2021-12-28 21:06] LABS: Troponin 5 2HR 15.26 ng/L (0-10)
[2021-12-28 21:09] LABS: Troponin 5 2HR Delta -4.74 ABS# (0-10)
== END 2021-12-28 22:40 | disposition short-term general hospital (02) ==
LOC: ER 15:58 → ICU 18:36 → ER 20:29
PROVIDERS: Family Medicine; Emergency Provider Emergency Medicine; PCP Family Medicine
DX: A41.9 Sepsis, unspecified organism (principal); R41.82 Altered mental status, unspecified; Z79.01 Long term (current) use of anticoagulants; Z79.82 Long term (current) use of aspirin; Z79.4 Long term (current) use of insulin; I25.10 Atherosclerotic heart disease of native coronary artery without angina pectoris; E11.9 Type 2 diabetes mellitus without complications; Z87.891 Personal history of nicotine dependence; Z20.822 Contact with and (suspected) exposure to COVID-19
CPT/HCPCS: 36415; 51702; 70450; 71045; 74176; 80053; 81001; 82009; 83605; 83690; 83735; 84484; 85025; 86850; 86900; 87040; 87205; 87426; 93005; 96365; 96367; 96375; 96376; 99285; J2250; J2405; J2543; J3370; J3490; J7030; J7050